=== PATIENT | male | born 1965 | race Hispanic/Latino ===

== ENCOUNTER 2017-09-23 18:00 | Outpatient (CLI) | payer BC | END 2017-09-23 18:01 | disposition home or self-care (01) | LOC: SLEEPLAB 18:00 | PROVIDERS: ATTEND Family Medicine | DX: G47.33 Obstructive sleep apnea (adult) (pediatric) (principal); E66.9 Obesity, unspecified; I10 Essential (primary) hypertension; Z68.37 Body mass index [BMI] 37.0-37.9, adult | CPT/HCPCS: 95806 ==

== ENCOUNTER 2020-11-11 16:22 | Outpatient (CLI) | payer BC | END 2020-11-11 16:23 | disposition home or self-care (01) | LOC: SCSRAD 16:22 | PROVIDERS: ATTEND Family Medicine | DX: R05 Cough (principal) | CPT/HCPCS: 71046 ==

== ENCOUNTER 2021-03-08 17:32 | Emergency (ER) | payer BC ==
[2021-03-09 13:41] LABS: SARS-CoV-2 PCR by NAA DETECTED (NotDetected)
== END 2021-03-08 18:10 | disposition home or self-care (01) ==
LOC: ERS 17:32
DX: U07.1 COVID-19 (principal); I10 Essential (primary) hypertension; E11.9 Type 2 diabetes mellitus without complications; Z79.84 Long term (current) use of oral hypoglycemic drugs
CPT/HCPCS: 99283; U0003; U0005

== ENCOUNTER 2021-03-12 14:50 | Inpatient (IN) | payer BC ==
[2021-03-12] MEDS ORDERED: Dexamethasone 4 mg/ml Vial ONE (15:21)
[2021-03-12 15:22] LABS: #Lymphocytes 1.5 thou/uL (1.20-3.40); #Monocytes 0.5 thou/uL (0.11-0.59); #Neutrophils 8.8 thou/uL (1.40-6.50); %Basophils 0.1 % (0.0-1.0); %Eosinophils 0.1 % (0.0-10.0); %Lymphocytes 13.7 % (21.0-51.0); %Monocytes 4.4 % (0.0-10.0); %Neutrophils 81.7 % (42.0-75.0); Hemoglobin 15.5 g/dL (14.0-18.0); Mean Corpuscular HGB CONC 33.1 g/dL (32.0-36.0); Mean Corpuscular Hemoglobin 29.3 pg (27.0-31.0); Mean Corpuscular Volume 88.5 fL (78.0-98.0); Mean Platelet Volume 6.8 fL (7.4-10.4); Platelet Count 270 thou/uL (130-400); RBC Distribution Width 12.6 % (11.5-14.5); Red Blood Cell (RBC) Count 5.28 mill/uL (4.70-6.10); White Blood Cell (WBC) Count 10.8 thou/uL (4.8-10.8)
[2021-03-12 15:43] LABS: ALT (SGPT) 109 U/L (8-55); AST (SGOT) 79 U/L (5-34); Albumin 3.5 g/dL (3.5-5.0); Alkaline Phosphatase 74 U/L (40-110); Anion Gap 16 mmol/L (10-20); BUN (Urea Nitrogen) 17 mg/dL (8.4-25.7); Bilirubin, Total 0.5 mg/dL (0.2-1.2); Calc. Creatinine Clearance 0 mL/min (70-130); Calcium 7.9 mg/dL (7.8-10.44); Carbon Dioxide 23 mmol/L (22-29); Chloride 95 mmol/L (98-107); Globulin 3.6 g/dL (2.4-3.5); Glucose 108 mg/dL (70-105); Potassium 4.1 mmol/L (3.5-5.1); Protein, Total 7.1 g/dL (6.0-8.3); Sodium 130 mmol/L (136-145)
[2021-03-12] MEDS ORDERED: Dextrose 5% in Water 1,000 ML IV PRN (17:50)
[2021-03-12] MEDS ORDERED: HumaLOG 300 UNITS/3 ML VIAL SC PRN (17:50)
[2021-03-12] MEDS ORDERED: Dextrose 50% Abboject 50 ML SYRINGE SLOW IVP PRN (17:50)
[2021-03-12] MEDS ORDERED: Loperamide HCl 2 MG CAP PO PRN ×2 (17:51)
[2021-03-12] MEDS ORDERED: HYDROcodone/Acetaminophen 10/325 mg Tablet PO PRN (17:51)
[2021-03-12] MEDS ORDERED: HYDROcodone/Acetaminophen 5/325 mg Tablet PO PRN (17:51)
[2021-03-12] MEDS ORDERED: Ondansetron ODT 4 MG TAB PO PRN (17:51)
[2021-03-12] MEDS ORDERED: Acetaminophen 325 MG TAB PO PRN (17:51)
[2021-03-12] MEDS ORDERED: Albuterol 200 PUFF (6.7GM INHALER) INH PRN (20:08)
[2021-03-12] MEDS ORDERED: Pharmacy to Dose REMDESIVIR IVPB PRN (20:10)
[2021-03-13] MEDS: Guaifenesin DM 100-10/5 ML UDCUP PO PRN ×2 (00:25→16:23)
[2021-03-13] MEDS: Sodium Chloride 0.9% 1,000 ML IV SCH ×5 (00:26→21:02)
[2021-03-13] MEDS: Colchicine 0.6 MG TAB PO SCH ×3 (00:29→20:59)
[2021-03-13] MEDS: Enoxaparin Sodium 40 MG/0.4 ML SYRINGE SC SCH ×2 (00:29→08:45)
[2021-03-13] MEDS: Ascorbic Acid 500 mg Chewable Tablet PO SCH (08:45)
[2021-03-13] MEDS: Cholecalciferol 1,000 UNITS (25 MCG) TAB PO SCH (08:46)
[2021-03-13] MEDS: Amlodipine 5 MG TAB PO SCH (08:46)
[2021-03-13] MEDS: Zinc Sulfate 220 MG CAP PO SCH (08:47)
[2021-03-13 08:51] LABS: #Lymphocytes 1.3 thou/uL (1.20-3.40); #Monocytes 0.6 thou/uL (0.11-0.59); #Neutrophils 10.6 thou/uL (1.40-6.50); %Basophils 0.1 % (0.0-1.0); %Eosinophils 0.1 % (0.0-10.0); %Lymphocytes 10.4 % (21.0-51.0); %Monocytes 4.4 % (0.0-10.0); Hemoglobin 13.9 g/dL (14.0-18.0); Mean Corpuscular HGB CONC 31.5 g/dL (32.0-36.0); Mean Corpuscular Hemoglobin 28.1 pg (27.0-31.0); Mean Corpuscular Volume 89.2 fL (78.0-98.0); Mean Platelet Volume 7.9 fL (7.4-10.4); Platelet Count 241 thou/uL (130-400); RBC Distribution Width 12.8 % (11.5-14.5); Red Blood Cell (RBC) Count 4.93 mill/uL (4.70-6.10); White Blood Cell (WBC) Count 12.5 thou/uL (4.8-10.8)
[2021-03-13] MEDS ORDERED: Dexamethasone 10 MG/ML VIAL SLOW IVP SCH ×2 (09:00→21:00)
[2021-03-13] MEDS ORDERED: Allopurinol 300 MG TAB PO SCH ×3 (09:00)
[2021-03-13] MEDS ORDERED: Dexamethasone 10 MG in Sodium Chloride 0.9% 50 ML IVPB SCH (09:00)
[2021-03-13 09:20] LABS: ALT (SGPT) 77 U/L (8-55); AST (SGOT) 68 U/L (5-34); Albumin 3.1 g/dL (3.5-5.0); Alkaline Phosphatase 67 U/L (40-110); Anion Gap 14 mmol/L (10-20); BUN (Urea Nitrogen) 20 mg/dL (8.4-25.7); Bilirubin, Total 0.4 mg/dL (0.2-1.2); Calc. Creatinine Clearance 122 mL/min (70-130); Calcium 8.1 mg/dL (7.8-10.44); Carbon Dioxide 23 mmol/L (22-29); Chloride 99 mmol/L (98-107); Globulin 4.1 g/dL (2.4-3.5); Glucose 111 mg/dL (70-105); Potassium 5.1 mmol/L (3.5-5.1); Protein, Total 7.2 g/dL (6.0-8.3); Sodium 131 mmol/L (136-145)
[2021-03-13 09:49] LABS: Actual Bicarbonate (HCO3a) 23.8 mEq/L (22-28); Base Excess (BEa) 0.6 mEq/L (-2.0 to +3.0); CO2 Tension 33.7 mmHg (35.0-45.0); Calcium, Ionized (arterial) 1.06 mmol/L (1.12-1.30); Carboxyhemoglobin (COHb) 0.7 gm% (0.0-3.0); Hemoglobin (Hb) 14.2 g/dL (14.0-18.0); Potassium - ABG Lab 4.37 mmol/L (3.70-5.30); pH, Arterial 7.47 (7.35-7.45)
[2021-03-13 09:51] LABS: O2 Tension (PaO2), arterial 45.1 mmHg (80.0-100.0)
[2021-03-13 09:52] LABS: ALV-art Gradient 625.775 mmHg (0-20); Puncture Site RRA
[2021-03-13] MEDS: Lorazepam 2 MG/ML VIAL SLOW IVP PRN ×2 (10:44→16:24)
[2021-03-13] MEDS ORDERED: BARICITINIB 2 MG TAB PO SCH (10:45)
[2021-03-13] MEDS ORDERED: Vecuronium Bromide 20 MG VIAL IV PRN (17:57)
[2021-03-13] MEDS ORDERED: Ventilator Sedation Protocol 1 EACH FS ONE (17:58)
[2021-03-13] MEDS ORDERED: Propofol BOLUS 1,000 MG/100 ML VIAL IV PRN (18:15)
[2021-03-13] MEDS ORDERED: Morphine 2 MG/ML VIAL SLOW IVP PRN (18:15)
[2021-03-13] MEDS ORDERED: Fentanyl BOLUS 250 ML IVPB PRN (18:15)
[2021-03-13] MEDS ORDERED: DISCONTINUE PREVIOUS NARCOTIC PAIN MEDICATIONS AND BENZODIAZEPINES FS SCH (18:15)
[2021-03-13] MEDS: Enoxaparin Sodium 60 MG/0.6 ML SYRINGE SC SCH (20:59)
[2021-03-13] MEDS: methylPREDNISolone Sod Succ/PF 125 MG in Sodium Chloride 0.9% 250 ML 250 ML IVPB SCH (21:03)
[2021-03-13 22:43] LABS: Actual Bicarbonate (HCO3a) 25.9 mEq/L (22-28); Base Excess (BEa) 2.3 mEq/L (-2.0 to +3.0); CO2 Tension 37.1 mmHg (35.0-45.0); Calcium, Ionized (arterial) 1.08 mmol/L (1.12-1.30); Carboxyhemoglobin (COHb) 0.5 gm% (0.0-3.0); Hemoglobin (Hb) 13.7 g/dL (14.0-18.0); Potassium - ABG Lab 4.88 mmol/L (3.70-5.30); pH, Arterial 7.46 (7.35-7.45)
[2021-03-13 22:44] LABS: O2 Tension (PaO2), arterial 49.9 mmHg (80.0-100.0)
[2021-03-13 22:45] LABS: ALV-art Gradient 616.725 mmHg (0-20); Puncture Site RRA
[2021-03-14 05:33] LABS: #Lymphocytes 1.1 thou/uL (1.20-3.40); #Monocytes 0.6 thou/uL (0.11-0.59); #Neutrophils 16.5 thou/uL (1.40-6.50); %Basophils 0.1 % (0.0-1.0); %Eosinophils 0.1 % (0.0-10.0); %Lymphocytes 5.9 % (21.0-51.0); %Monocytes 3.5 % (0.0-10.0); %Neutrophils 90.5 % (42.0-75.0); Hemoglobin 13.2 g/dL (14.0-18.0); Mean Corpuscular HGB CONC 34.1 g/dL (32.0-36.0); Mean Corpuscular Hemoglobin 30.5 pg (27.0-31.0); Mean Corpuscular Volume 89.5 fL (78.0-98.0); Mean Platelet Volume 7.1 fL (7.4-10.4); Platelet Count 338 thou/uL (130-400); RBC Distribution Width 12.6 % (11.5-14.5); Red Blood Cell (RBC) Count 4.34 mill/uL (4.70-6.10); White Blood Cell (WBC) Count 18.2 thou/uL (4.8-10.8)
[2021-03-14 05:55] LABS: ALT (SGPT) 66 U/L (8-55); AST (SGOT) 68 U/L (5-34); Albumin 2.8 g/dL (3.5-5.0); Alkaline Phosphatase 71 U/L (40-110); Anion Gap 13 mmol/L (10-20); BUN (Urea Nitrogen) 26 mg/dL (8.4-25.7); Bilirubin, Total 0.4 mg/dL (0.2-1.2); Calc. Creatinine Clearance 127 mL/min (70-130); Calcium 8.2 mg/dL (7.8-10.44); Carbon Dioxide 24 mmol/L (22-29); Chloride 101 mmol/L (98-107); Globulin 3.7 g/dL (2.4-3.5); Glucose 137 mg/dL (70-105); Magnesium 2.3 mg/dL (1.6-2.6); Potassium 4.9 mmol/L (3.5-5.1); Protein, Total 6.5 g/dL (6.0-8.3); Sodium 133 mmol/L (136-145)
[2021-03-14] MEDS: BARICITINIB 2 MG TAB PO SCH (08:48)
[2021-03-14] MEDS: Ascorbic Acid 500 mg Chewable Tablet PO SCH (08:48)
[2021-03-14] MEDS: Zinc Sulfate 220 MG CAP PO SCH (08:49)
[2021-03-14] MEDS: Colchicine 0.6 MG TAB PO SCH ×2 (08:49→21:02)
[2021-03-14] MEDS: Enoxaparin Sodium 60 MG/0.6 ML SYRINGE SC SCH ×2 (08:49→21:01)
[2021-03-14] MEDS: Cholecalciferol 1,000 UNITS (25 MCG) TAB PO SCH (08:52)
[2021-03-14] MEDS ORDERED: Propofol 1,000 MG/100 ML VIAL IV ONE (11:13)
[2021-03-14] MEDS ORDERED: Fentanyl CADD 100 ML ONE ×2 (11:14→21:48)
[2021-03-14] MEDS: Fentanyl CADD 100 ML IV SCH ×2 (11:25→21:51)
[2021-03-14] MEDS ORDERED: Vecuronium 10 MG VIAL ONE ×2 (12:10→18:35)
[2021-03-14 12:44] LABS: Actual Bicarbonate (HCO3a) 24.2 mEq/L (22-28); Base Excess (BEa) -1.4 mEq/L (-2.0 to +3.0); CO2 Tension 44.1 mmHg (35.0-45.0); Calcium, Ionized (arterial) 1.08 mmol/L (1.12-1.30); Carboxyhemoglobin (COHb) 0.1 gm% (0.0-3.0); O2 Tension (PaO2), arterial 86.2 mmHg (80.0-100.0); Potassium - ABG Lab 4.39 mmol/L (3.70-5.30); pH, Arterial 7.36 (7.35-7.45)
[2021-03-14 12:46] LABS: ALV-art Gradient 429.075 mmHg (0-20); Puncture Site LRA
[2021-03-14] MEDS: Amlodipine 5 MG TAB PO SCH (17:34)
[2021-03-14] MEDS: Propofol 1,000 MG/100 ML VIAL IV PRN (17:40)
[2021-03-14] MEDS: HumaLOG 300 UNITS/3 ML VIAL SC PRN (17:41)
[2021-03-14] MEDS ORDERED: Piperacillin/Tazobactam 3.375 GM in Sodium Chloride 0.9% 100 ML IVPB SCH ×2 (18:30→20:15)
[2021-03-14] MEDS: methylPREDNISolone Sod Succ/PF 125 MG in Sodium Chloride 0.9% 250 ML 250 ML IVPB SCH (19:36)
[2021-03-14] MEDS: Lorazepam 2 MG/ML VIAL SLOW IVP PRN ×2 (19:38→21:53)
[2021-03-14 21:21] LABS: Bilirubin Negative (Negative); Blood, Urine 1+ (Negative); Clarity Clear (Clear); Glucose, Urine (Dipstick) Normal (Negative); Ketone, Urine Negative (Negative); Leukocyte Negative Leu/uL (Negative); Nitrite Negative (Negative); Protein, Urine (Dipstick) Negative (Neg-Trace); Specific Gravity, Urine 1.025 (1.002-1.036); Squamous Epithelial 0-3 HPF (0-3); Urobilinogen Normal mg/dL (Less than 2); WBC/HPF 0-3 HPF (0-3); pH, Urine 5.5 (5.0-9.0)
[2021-03-14 21:22] LABS: Bacteria/HPF Rare-Few HPF (None Seen)
[2021-03-14 21:23] LABS: Urine Culture Reflex No No
[2021-03-14] MEDS ORDERED: Sterile Water 10 ML ONE (21:49)
[2021-03-14] MEDS: Vancomycin 1.5 GRAM/300 ML BAG 1.5 GM in Premix Bag 1 BAG IVPB SCH (21:51)
[2021-03-14] MEDS: Propofol 500 MG/50 ML VIAL IV PRN (21:52)
[2021-03-14] MEDS: Vecuronium 10 MG VIAL IV PRN (21:53)
[2021-03-14] MEDS: Piperacillin/Tazobactam 3.375 GM in Sodium Chloride 0.9% 100 ML IVPB SCH (23:42)
[2021-03-15] MEDS: Propofol 500 MG/50 ML VIAL IV PRN ×5 (00:24→09:50)
[2021-03-15] MEDS ORDERED: Sterile Water 10 ML ONE ×3 (02:12→19:24)
[2021-03-15] MEDS: Lorazepam 2 MG/ML VIAL SLOW IVP PRN ×3 (02:15→20:36)
[2021-03-15] MEDS: Vecuronium 10 MG VIAL IV PRN ×4 (02:15→20:45)
[2021-03-15] MEDS: Enoxaparin Sodium 60 MG/0.6 ML SYRINGE SC SCH ×2 (08:06→20:38)
[2021-03-15] MEDS: Colchicine 0.6 MG TAB PO SCH ×2 (08:07→20:38)
[2021-03-15] MEDS: Piperacillin/Tazobactam 3.375 GM in Sodium Chloride 0.9% 100 ML IVPB SCH ×3 (08:07→23:45)
[2021-03-15] MEDS: BARICITINIB 2 MG TAB PO SCH (08:07)
[2021-03-15] MEDS: Cholecalciferol 1,000 UNITS (25 MCG) TAB PO SCH (08:08)
[2021-03-15] MEDS: Ascorbic Acid 500 mg Chewable Tablet PO SCH (08:08)
[2021-03-15] MEDS: Amlodipine 5 MG TAB PO SCH (08:08)
[2021-03-15] MEDS: Zinc Sulfate 220 MG CAP PO SCH (08:08)
[2021-03-15] MEDS ORDERED: Fentanyl CADD 100 ML ONE ×2 (09:47→20:25)
[2021-03-15] MEDS: Vancomycin 1.5 GRAM/300 ML BAG 1.5 GM in Premix Bag 1 BAG IVPB SCH ×2 (09:50→20:38)
[2021-03-15 10:39] LABS: Actual Bicarbonate (HCO3a) 22.6 mEq/L (22-28); Base Excess (BEa) -1.6 mEq/L (-2.0 to +3.0); CO2 Tension 36.4 mmHg (35.0-45.0); Carboxyhemoglobin (COHb) 0.3 gm% (0.0-3.0); O2 Tension (PaO2), arterial 82.2 mmHg (80.0-100.0); Potassium - ABG Lab 4.55 mmol/L (3.70-5.30); pH, Arterial 7.41 (7.35-7.45)
[2021-03-15 10:41] LABS: Puncture Site RRA
[2021-03-15 10:51] LABS: ALT (SGPT) 49 U/L (8-55); AST (SGOT) 28 U/L (5-34); Albumin 2.7 g/dL (3.5-5.0); Alkaline Phosphatase 73 U/L (40-110); Anion Gap 15 mmol/L (10-20); BUN (Urea Nitrogen) 32 mg/dL (8.4-25.7); Bilirubin, Total 0.5 mg/dL (0.2-1.2); Calc. Creatinine Clearance 113 mL/min (70-130); Calcium 8.1 mg/dL (7.8-10.44); Carbon Dioxide 22 mmol/L (22-29); Chloride 104 mmol/L (98-107); Globulin 3.5 g/dL (2.4-3.5); Glucose 135 mg/dL (70-105); Magnesium 2.4 mg/dL (1.6-2.6); Phosphorus 5.5 mg/dL (2.3-4.7); Potassium 4.7 mmol/L (3.5-5.1); Protein, Total 6.2 g/dL (6.0-8.3); Sodium 136 mmol/L (136-145)
[2021-03-15 10:58] LABS: Band 16 % (5-11); Lymphocytes 6 % (21-51); MDiff Complete? YES; Mean Corpuscular HGB CONC 33.7 g/dL (32.0-36.0); Mean Corpuscular Volume 88.9 fL (78.0-98.0); Mean Platelet Volume 7.5 fL (7.4-10.4); Monocytes 2 % (0-10); Neutrophil 76 % (42-75); Platelet Count 341 thou/uL (130-400); RBC Distribution Width 12.6 % (11.5-14.5); Red Blood Cell (RBC) Count 4.32 mill/uL (4.70-6.10); White Blood Cell (WBC) Count 29.6 thou/uL (4.8-10.8)
[2021-03-15] MEDS: Sodium Chloride 0.9% 1,000 ML IV SCH (12:49)
[2021-03-15] MEDS: Propofol 1,000 MG/100 ML VIAL IV PRN ×2 (14:04→23:45)
[2021-03-15] MEDS: methylPREDNISolone Sod Succ/PF 125 MG in Sodium Chloride 0.9% 250 ML 250 ML IVPB SCH ×2 (17:33→20:41)
[2021-03-15] MEDS ORDERED: Propofol 1,000 MG/100 ML VIAL IV ONE (18:58)
[2021-03-15] MEDS: Fentanyl CADD 100 ML IV SCH (20:36)
[2021-03-15] MEDS: HumaLOG 300 UNITS/3 ML VIAL SC PRN (23:48)
[2021-03-16] MEDS: Vecuronium 10 MG VIAL IV PRN ×2 (00:45→11:50)
[2021-03-16] MEDS: Lorazepam 2 MG/ML VIAL SLOW IVP PRN ×4 (00:45→23:06)
[2021-03-16] MEDS ORDERED: Sterile Water 10 ML ONE (02:10)
[2021-03-16] MEDS: Propofol 1,000 MG/100 ML VIAL IV PRN ×3 (05:07→21:21)
[2021-03-16 05:30] LABS: #Lymphocytes 0.7 thou/uL (1.20-3.40); #Monocytes 0.8 thou/uL (0.11-0.59); #Neutrophils 14.9 thou/uL (1.40-6.50); %Lymphocytes 4.5 % (21.0-51.0); %Neutrophils 90.4 % (42.0-75.0); Hemoglobin 12.4 g/dL (14.0-18.0); Mean Corpuscular HGB CONC 33.1 g/dL (32.0-36.0); Mean Corpuscular Hemoglobin 29.4 pg (27.0-31.0); Mean Corpuscular Volume 88.9 fL (78.0-98.0); Mean Platelet Volume 7.9 fL (7.4-10.4); Platelet Count 354 thou/uL (130-400); RBC Distribution Width 12.6 % (11.5-14.5); White Blood Cell (WBC) Count 16.5 thou/uL (4.8-10.8)
[2021-03-16 05:35] LABS: ALT (SGPT) 44 U/L (8-55); AST (SGOT) 24 U/L (5-34); Albumin 2.6 g/dL (3.5-5.0); Alkaline Phosphatase 64 U/L (40-110); Anion Gap 15 mmol/L (10-20); BUN (Urea Nitrogen) 40 mg/dL (8.4-25.7); Bilirubin, Total 0.7 mg/dL (0.2-1.2); Calc. Creatinine Clearance 112 mL/min (70-130); Calcium 7.8 mg/dL (7.8-10.44); Carbon Dioxide 23 mmol/L (22-29); Chloride 105 mmol/L (98-107); Glucose 155 mg/dL (70-105); Magnesium 2.8 mg/dL (1.6-2.6); Phosphorus 4.8 mg/dL (2.3-4.7); Potassium 4.8 mmol/L (3.5-5.1); Protein, Total 5.6 g/dL (6.0-8.3); Sodium 138 mmol/L (136-145)
[2021-03-16] MEDS: HumaLOG 300 UNITS/3 ML VIAL SC PRN (06:20)
[2021-03-16] MEDS ORDERED: Fentanyl CADD 100 ML ONE ×2 (06:28→19:18)
[2021-03-16] MEDS: Fentanyl CADD 100 ML IV SCH (07:24)
[2021-03-16 08:18] LABS: Actual Bicarbonate (HCO3a) 21.6 mEq/L (22-28); Base Excess (BEa) -1.6 mEq/L (-2.0 to +3.0); CO2 Tension 31.9 mmHg (35.0-45.0); Calcium, Ionized (arterial) 1.12 mmol/L (1.12-1.30); Carboxyhemoglobin (COHb) 0.4 gm% (0.0-3.0); Hemoglobin (Hb) 12.7 g/dL (14.0-18.0); O2 Tension (PaO2), arterial 137.1 mmHg (80.0-100.0); Potassium - ABG Lab 4.42 mmol/L (3.70-5.30); pH, Arterial 7.45 (7.35-7.45)
[2021-03-16 08:46] LABS: Vancomycin, Trough 8.9 ug/mL
[2021-03-16 09:10] LABS: ALV-art Gradient 108.225 mmHg (0-20); Puncture Site RRA
[2021-03-16] MEDS: BARICITINIB 2 MG TAB PO SCH (09:41)
[2021-03-16] MEDS: Piperacillin/Tazobactam 3.375 GM in Sodium Chloride 0.9% 100 ML IVPB SCH ×2 (09:41→16:48)
[2021-03-16] MEDS: Cholecalciferol 1,000 UNITS (25 MCG) TAB PO SCH (09:41)
[2021-03-16] MEDS: Colchicine 0.6 MG TAB PO SCH ×2 (09:42→21:20)
[2021-03-16] MEDS: Enoxaparin Sodium 60 MG/0.6 ML SYRINGE SC SCH ×2 (09:42→21:20)
[2021-03-16] MEDS: Ascorbic Acid 500 mg Chewable Tablet PO SCH (09:42)
[2021-03-16] MEDS: Zinc Sulfate 220 MG CAP PO SCH (09:42)
[2021-03-16] MEDS: Amlodipine 5 MG TAB PO SCH (09:51)
[2021-03-16] MEDS: Vancomycin 1.5 GRAM/300 ML BAG 1.5 GM in Premix Bag 1 BAG IVPB SCH ×3 (09:54→17:07)
[2021-03-16] MEDS ORDERED: Vancomycin 1.5 GRAM/300 ML BAG 1.5 GM in Premix Bag 1 BAG IVPB SCH (10:00)
[2021-03-16 15:06] LABS: Actual Bicarbonate (HCO3a) 22.7 mEq/L (22-28); Base Excess (BEa) -0.8 mEq/L (-2.0 to +3.0); CO2 Tension 34.5 mmHg (35.0-45.0); Calcium, Ionized (arterial) 1.13 mmol/L (1.12-1.30); Carboxyhemoglobin (COHb) 0.7 gm% (0.0-3.0); Hemoglobin (Hb) 14.1 g/dL (14.0-18.0); O2 Tension (PaO2), arterial 95.6 mmHg (80.0-100.0); Potassium - ABG Lab 4.42 mmol/L (3.70-5.30); pH, Arterial 7.44 (7.35-7.45)
[2021-03-16 15:08] LABS: ALV-art Gradient 146.475 mmHg (0-20); Puncture Site RRA
[2021-03-16] MEDS: methylPREDNISolone Sod Succ/PF 125 MG in Sodium Chloride 0.9% 250 ML 250 ML IVPB SCH (21:30)
[2021-03-17] MEDS: Piperacillin/Tazobactam 3.375 GM in Sodium Chloride 0.9% 100 ML IVPB SCH ×4 (01:49→23:25)
[2021-03-17] MEDS: Vancomycin 1.5 GRAM/300 ML BAG 1.5 GM in Premix Bag 1 BAG IVPB SCH ×3 (01:50→16:38)
[2021-03-17 04:21] LABS: #Lymphocytes 0.8 thou/uL (1.20-3.40); #Neutrophils 14.6 thou/uL (1.40-6.50); %Lymphocytes 4.8 % (21.0-51.0); %Monocytes 6.3 % (0.0-10.0); %Neutrophils 88.9 % (42.0-75.0); Hemoglobin 12.2 g/dL (14.0-18.0); Mean Corpuscular Hemoglobin 29.6 pg (27.0-31.0); Mean Corpuscular Volume 89.5 fL (78.0-98.0); Mean Platelet Volume 7.5 fL (7.4-10.4); Platelet Count 401 thou/uL (130-400); RBC Distribution Width 12.6 % (11.5-14.5); Red Blood Cell (RBC) Count 4.12 mill/uL (4.70-6.10); White Blood Cell (WBC) Count 16.4 thou/uL (4.8-10.8)
[2021-03-17] MEDS: Propofol 1,000 MG/100 ML VIAL IV PRN ×4 (04:45→21:16)
[2021-03-17 04:49] LABS: ALT (SGPT) 62 U/L (8-55); AST (SGOT) 38 U/L (5-34); Albumin 2.5 g/dL (3.5-5.0); Alkaline Phosphatase 71 U/L (40-110); Anion Gap 13 mmol/L (10-20); BUN (Urea Nitrogen) 38 mg/dL (8.4-25.7); Bilirubin, Total 0.9 mg/dL (0.2-1.2); Calc. Creatinine Clearance 111 mL/min (70-130); Calcium 7.7 mg/dL (7.8-10.44); Carbon Dioxide 23 mmol/L (22-29); Chloride 107 mmol/L (98-107); Glucose 166 mg/dL (70-105); Magnesium 2.6 mg/dL (1.6-2.6); Potassium 4.9 mmol/L (3.5-5.1); Protein, Total 5.5 g/dL (6.0-8.3); Sodium 138 mmol/L (136-145)
[2021-03-17] MEDS ORDERED: Fentanyl CADD 100 ML ONE ×2 (06:47→19:17)
[2021-03-17] MEDS: Fentanyl CADD 100 ML IV SCH ×2 (06:50→19:22)
[2021-03-17 08:15] LABS: Actual Bicarbonate (HCO3a) 22.6 mEq/L (22-28); Base Excess (BEa) -1.5 mEq/L (-2.0 to +3.0); CO2 Tension 36.1 mmHg (35.0-45.0); Calcium, Ionized (arterial) 1.14 mmol/L (1.12-1.30); Carboxyhemoglobin (COHb) 0.3 gm% (0.0-3.0); Hemoglobin (Hb) 12.8 g/dL (14.0-18.0); Potassium - ABG Lab 4.72 mmol/L (3.70-5.30); pH, Arterial 7.41 (7.35-7.45)
[2021-03-17 08:30] LABS: ALV-art Gradient 138.075 mmHg (0-20); Puncture Site RRA
[2021-03-17] MEDS: Enoxaparin Sodium 60 MG/0.6 ML SYRINGE SC SCH ×2 (08:35→21:16)
[2021-03-17] MEDS: BARICITINIB 2 MG TAB PO SCH (08:36)
[2021-03-17] MEDS: Ascorbic Acid 500 mg Chewable Tablet PO SCH (08:36)
[2021-03-17] MEDS: Colchicine 0.6 MG TAB PO SCH ×2 (08:36→21:16)
[2021-03-17] MEDS: Zinc Sulfate 220 MG CAP PO SCH (08:36)
[2021-03-17] MEDS: Amlodipine 5 MG TAB PO SCH (08:36)
[2021-03-17] MEDS: Cholecalciferol 1,000 UNITS (25 MCG) TAB PO SCH (08:37)
[2021-03-17 10:13] LABS: Vancomycin, Trough 24.7 ug/mL
[2021-03-17 17:26] LABS: Vancomycin, Random 22.2 ug/mL (See Comment)
[2021-03-17] MEDS: methylPREDNISolone Sod Succ/PF 125 MG in Sodium Chloride 0.9% 250 ML 250 ML IVPB SCH (21:16)
[2021-03-18] MEDS: Vancomycin HCl 1.25 GM in Sodium Chloride 0.9% 250 ML 250 ML IVPB SCH ×3 (00:24→23:07)
[2021-03-18] MEDS: Propofol 1,000 MG/100 ML VIAL IV PRN ×4 (03:16→18:43)
[2021-03-18 05:00] LABS: Hemoglobin 12.3 g/dL (14.0-18.0); Mean Corpuscular HGB CONC 33.7 g/dL (32.0-36.0); Mean Corpuscular Hemoglobin 30.5 pg (27.0-31.0); Mean Corpuscular Volume 90.4 fL (78.0-98.0); Mean Platelet Volume 7.9 fL (7.4-10.4); Platelet Count 509 thou/uL (130-400); RBC Distribution Width 12.5 % (11.5-14.5); Red Blood Cell (RBC) Count 4.04 mill/uL (4.70-6.10); White Blood Cell (WBC) Count 19.8 thou/uL (4.8-10.8)
[2021-03-18 05:46] LABS: Band 8 % (5-11); Lymphocytes 5 % (21-51); MDiff Complete? YES; Monocytes 5 % (0-10); Neutrophil 82 % (42-75); Platelet Morphology Comment Appears Increased; RBC Morphology Normal
[2021-03-18] MEDS ORDERED: Fentanyl CADD 100 ML ONE ×2 (07:50→20:39)
[2021-03-18] MEDS: Lorazepam 2 MG/ML VIAL SLOW IVP PRN (08:05)
[2021-03-18] MEDS: Enoxaparin Sodium 60 MG/0.6 ML SYRINGE SC SCH ×2 (08:05→20:45)
[2021-03-18] MEDS: Pantoprazole 40 MG GRANULES PACKET PER TUBE SCH (08:06)
[2021-03-18] MEDS: Ascorbic Acid 500 mg Chewable Tablet PO SCH (08:06)
[2021-03-18] MEDS: Piperacillin/Tazobactam 3.375 GM in Sodium Chloride 0.9% 100 ML IVPB SCH ×2 (08:06→16:19)
[2021-03-18] MEDS: Fentanyl CADD 100 ML IV SCH ×2 (08:08→20:46)
[2021-03-18] MEDS: Colchicine 0.6 MG TAB PO SCH ×2 (08:20→20:45)
[2021-03-18] MEDS: Zinc Sulfate 220 MG CAP PO SCH (08:20)
[2021-03-18] MEDS: BARICITINIB 2 MG TAB PO SCH (08:20)
[2021-03-18] MEDS: Amlodipine 5 MG TAB PO SCH (08:21)
[2021-03-18] MEDS: Cholecalciferol 1,000 UNITS (25 MCG) TAB PO SCH (10:48)
[2021-03-18] MEDS ORDERED: VANCOMYCIN 1.25 GM/250 ML BAG 1.25 GM in Premix Bag 1 BAG IVPB SCH (16:30)
[2021-03-19] MEDS: Piperacillin/Tazobactam 3.375 GM in Sodium Chloride 0.9% 100 ML IVPB SCH ×3 (00:01→15:12)
[2021-03-19] MEDS: VANCOMYCIN 1.25 GM/250 ML BAG 1.25 GM in Premix Bag 1 BAG IVPB SCH ×3 (00:02→17:48)
[2021-03-19] MEDS: Propofol 1,000 MG/100 ML VIAL IV PRN ×5 (00:03→22:35)
[2021-03-19] MEDS: methylPREDNISolone Sod Succ/PF 125 MG in Sodium Chloride 0.9% 250 ML 250 ML IVPB SCH ×2 (01:49→22:35)
[2021-03-19 04:59] LABS: Hemoglobin 12.6 g/dL (14.0-18.0); Mean Corpuscular HGB CONC 32.4 g/dL (32.0-36.0); Mean Corpuscular Hemoglobin 28.8 pg (27.0-31.0); Mean Corpuscular Volume 89.1 fL (78.0-98.0); Mean Platelet Volume 7.6 fL (7.4-10.4); Platelet Count 502 thou/uL (130-400); RBC Distribution Width 12.3 % (11.5-14.5); Red Blood Cell (RBC) Count 4.36 mill/uL (4.70-6.10); White Blood Cell (WBC) Count 18.4 thou/uL (4.8-10.8)
[2021-03-19 05:18] LABS: Anion Gap 13 mmol/L (10-20); BUN (Urea Nitrogen) 26 mg/dL (8.4-25.7); Calc. Creatinine Clearance 143 mL/min (70-130); Carbon Dioxide 25 mmol/L (22-29); Chloride 103 mmol/L (98-107); Glucose 138 mg/dL (70-105); Potassium 5.2 mmol/L (3.5-5.1); Sodium 136 mmol/L (136-145)
[2021-03-19 05:44] LABS: Band 4 % (5-11); Lymphocytes 3 % (21-51); MDiff Complete? YES; Monocytes 6 % (0-10); Neutrophil 87 % (42-75); Platelet Morphology Comment Appears Increased
[2021-03-19 07:51] LABS: Actual Bicarbonate (HCO3a) 25.2 mEq/L (22-28); CO2 Tension 38.9 mmHg (35.0-45.0); Calcium, Ionized (arterial) 1.15 mmol/L (1.12-1.30); Carboxyhemoglobin (COHb) 0.9 gm% (0.0-3.0); Hemoglobin (Hb) 13.7 g/dL (14.0-18.0); O2 Tension (PaO2), arterial 56.2 mmHg (80.0-100.0); Puncture Site LRA; pH, Arterial 7.43 (7.35-7.45)
[2021-03-19 07:52] LABS: ALV-art Gradient 287.325 mmHg (0-20)
[2021-03-19 07:55] LABS: Vancomycin, Trough 16.4 ug/mL
[2021-03-19] MEDS ORDERED: Fentanyl CADD 100 ML ONE ×2 (08:49→19:56)
[2021-03-19] MEDS: Fentanyl CADD 100 ML IV SCH ×2 (08:52→20:09)
[2021-03-19] MEDS: Enoxaparin Sodium 60 MG/0.6 ML SYRINGE SC SCH ×2 (08:55→20:08)
[2021-03-19] MEDS: Amlodipine 5 MG TAB PO SCH (08:55)
[2021-03-19] MEDS: Ascorbic Acid 500 mg Chewable Tablet PO SCH (08:55)
[2021-03-19] MEDS: Colchicine 0.6 MG TAB PO SCH ×2 (08:55→20:08)
[2021-03-19] MEDS: Cholecalciferol 1,000 UNITS (25 MCG) TAB PO SCH (08:55)
[2021-03-19] MEDS: BARICITINIB 2 MG TAB PO SCH (08:55)
[2021-03-19] MEDS: Pantoprazole 40 MG GRANULES PACKET PER TUBE SCH (08:56)
[2021-03-19] MEDS: Zinc Sulfate 220 MG CAP PO SCH (08:56)
[2021-03-19] MEDS: Lorazepam 2 MG/ML VIAL SLOW IVP PRN (12:57)
[2021-03-19] MEDS: Senokot 8.6 MG TAB PER TUBE SCH (20:08)
[2021-03-20] MEDS: Piperacillin/Tazobactam 3.375 GM in Sodium Chloride 0.9% 100 ML IVPB SCH ×3 (00:38→15:36)
[2021-03-20] MEDS: VANCOMYCIN 1.25 GM/250 ML BAG 1.25 GM in Premix Bag 1 BAG IVPB SCH ×3 (00:58→15:53)
[2021-03-20] MEDS: Propofol 1,000 MG/100 ML VIAL IV PRN ×5 (03:34→21:52)
[2021-03-20 03:59] LABS: Hemoglobin 13.1 g/dL (14.0-18.0); Mean Corpuscular HGB CONC 33.2 g/dL (32.0-36.0); Mean Corpuscular Hemoglobin 29.6 pg (27.0-31.0); Mean Corpuscular Volume 89.1 fL (78.0-98.0); Mean Platelet Volume 7.8 fL (7.4-10.4); Platelet Count 538 thou/uL (130-400); RBC Distribution Width 12.3 % (11.5-14.5); Red Blood Cell (RBC) Count 4.42 mill/uL (4.70-6.10); White Blood Cell (WBC) Count 19.1 thou/uL (4.8-10.8)
[2021-03-20 04:11] LABS: Anion Gap 14 mmol/L (10-20); BUN (Urea Nitrogen) 28 mg/dL (8.4-25.7); Calc. Creatinine Clearance 0 mL/min (70-130); Calcium 8.2 mg/dL (7.8-10.44); Carbon Dioxide 25 mmol/L (22-29); Chloride 102 mmol/L (98-107); Glucose 132 mg/dL (70-105); Potassium 5.4 mmol/L (3.5-5.1); Sodium 136 mmol/L (136-145)
[2021-03-20 04:22] LABS: Band 13 % (5-11); Lymphocytes 4 % (21-51); MDiff Complete? YES; Monocytes 7 % (0-10); Neutrophil 76 % (42-75); Platelet Morphology Comment Appears Increased; RBC Morphology Normal
[2021-03-20] MEDS: Polyethylene Glycol 3350 17 GM Packet PER TUBE SCH (07:33)
[2021-03-20] MEDS: Ascorbic Acid 500 mg Chewable Tablet PO SCH (07:33)
[2021-03-20] MEDS: Amlodipine 5 MG TAB PO SCH (07:33)
[2021-03-20] MEDS: Senokot 8.6 MG TAB PER TUBE SCH ×2 (07:33→21:27)
[2021-03-20] MEDS: Zinc Sulfate 220 MG CAP PO SCH (07:34)
[2021-03-20] MEDS: Colchicine 0.6 MG TAB PO SCH ×2 (07:34→20:13)
[2021-03-20] MEDS: BARICITINIB 2 MG TAB PO SCH (07:34)
[2021-03-20] MEDS: Enoxaparin Sodium 60 MG/0.6 ML SYRINGE SC SCH ×2 (07:34→20:12)
[2021-03-20] MEDS: Cholecalciferol 1,000 UNITS (25 MCG) TAB PO SCH (07:34)
[2021-03-20] MEDS: Pantoprazole 40 MG GRANULES PACKET PER TUBE SCH (07:34)
[2021-03-20] MEDS ORDERED: Fentanyl CADD 100 ML ONE ×2 (08:02→20:07)
[2021-03-20] MEDS: Fentanyl CADD 100 ML IV SCH ×2 (08:06→20:12)
[2021-03-20] MEDS: Lorazepam 2 MG/ML VIAL SLOW IVP PRN (15:37)
[2021-03-20] MEDS: HumaLOG 300 UNITS/3 ML VIAL SC PRN (21:51)
[2021-03-20 23:27] LABS: Vancomycin, Trough 18.4 ug/mL
[2021-03-21] MEDS: VANCOMYCIN 1.25 GM/250 ML BAG 1.25 GM in Premix Bag 1 BAG IVPB SCH ×3 (00:33→23:21)
[2021-03-21] MEDS: Piperacillin/Tazobactam 3.375 GM in Sodium Chloride 0.9% 100 ML IVPB SCH ×3 (00:34→23:20)
[2021-03-21] MEDS: methylPREDNISolone Sod Succ/PF 125 MG in Sodium Chloride 0.9% 250 ML 250 ML IVPB SCH ×2 (01:55→23:21)
[2021-03-21] MEDS: Propofol 1,000 MG/100 ML VIAL IV PRN ×3 (03:45→21:34)
[2021-03-21 04:40] LABS: Anion Gap 14 mmol/L (10-20); BUN (Urea Nitrogen) 30 mg/dL (8.4-25.7); Calc. Creatinine Clearance 0 mL/min (70-130); Calcium 8.2 mg/dL (7.8-10.44); Carbon Dioxide 25 mmol/L (22-29); Chloride 101 mmol/L (98-107); Glucose 135 mg/dL (70-105); Potassium 5.2 mmol/L (3.5-5.1); Sodium 135 mmol/L (136-145)
[2021-03-21 04:50] LABS: Hemoglobin 13.4 g/dL (14.0-18.0); Mean Corpuscular HGB CONC 33.4 g/dL (32.0-36.0); Mean Corpuscular Volume 89.9 fL (78.0-98.0); Mean Platelet Volume 7.9 fL (7.4-10.4); Platelet Count 604 thou/uL (130-400); RBC Distribution Width 12.4 % (11.5-14.5); Red Blood Cell (RBC) Count 4.47 mill/uL (4.70-6.10); White Blood Cell (WBC) Count 19.1 thou/uL (4.8-10.8)
[2021-03-21 06:07] LABS: Lymphocytes 9 % (21-51); MDiff Complete? YES; Monocytes 11 % (0-10); Neutrophil 79 % (42-75); Platelet Morphology Comment Appears Increased; RBC Morphology Normal; Reactive Lymphocytes 1 % (0-10)
[2021-03-21] MEDS ORDERED: Fentanyl CADD 100 ML ONE ×2 (07:13→20:16)
[2021-03-21 07:30] LABS: Base Excess (BEa) 2.1 mEq/L (-2.0 to +3.0); CO2 Tension 38.3 mmHg (35.0-45.0); Calcium, Ionized (arterial) 1.14 mmol/L (1.12-1.30); Carboxyhemoglobin (COHb) 1.1 gm% (0.0-3.0); Hemoglobin (Hb) 15.5 g/dL (14.0-18.0); Potassium - ABG Lab 4.86 mmol/L (3.70-5.30); pH, Arterial 7.45 (7.35-7.45)
[2021-03-21] MEDS: Fentanyl CADD 100 ML IV SCH ×2 (07:34→20:21)
[2021-03-21] MEDS: Lorazepam 2 MG/ML VIAL SLOW IVP PRN ×3 (07:36→21:34)
[2021-03-21 07:49] LABS: O2 Tension (PaO2), arterial 58.4 mmHg (80.0-100.0); Puncture Site RRA
[2021-03-21 07:50] LABS: ALV-art Gradient 178.925 mmHg (0-20)
[2021-03-21] MEDS: BARICITINIB 2 MG TAB PO SCH (08:15)
[2021-03-21] MEDS: Cholecalciferol 1,000 UNITS (25 MCG) TAB PO SCH (08:15)
[2021-03-21] MEDS: Ascorbic Acid 500 mg Chewable Tablet PO SCH (08:15)
[2021-03-21] MEDS: Pantoprazole 40 MG GRANULES PACKET PER TUBE SCH (08:15)
[2021-03-21] MEDS: Colchicine 0.6 MG TAB PO SCH ×2 (08:15→20:20)
[2021-03-21] MEDS: Enoxaparin Sodium 60 MG/0.6 ML SYRINGE SC SCH ×2 (08:15→20:20)
[2021-03-21] MEDS: Zinc Sulfate 220 MG CAP PO SCH (08:15)
[2021-03-21] MEDS: Amlodipine 5 MG TAB PO SCH (08:15)
[2021-03-21] MEDS: Polyethylene Glycol 3350 17 GM Packet PER TUBE SCH (08:16)
[2021-03-21] MEDS: Senokot 8.6 MG TAB PER TUBE SCH ×2 (08:16→20:20)
[2021-03-22] MEDS: Piperacillin/Tazobactam 3.375 GM in Sodium Chloride 0.9% 100 ML IVPB SCH ×3 (07:21→16:00)
[2021-03-22] MEDS: VANCOMYCIN 1.25 GM/250 ML BAG 1.25 GM in Premix Bag 1 BAG IVPB SCH ×2 (07:22)
[2021-03-22 07:51] LABS: Actual Bicarbonate (HCO3a) 25.7 mEq/L (22-28); CO2 Tension 36.9 mmHg (35.0-45.0); Calcium, Ionized (arterial) 1.16 mmol/L (1.12-1.30); Carboxyhemoglobin (COHb) 1.2 gm% (0.0-3.0); Hemoglobin (Hb) 13.7 g/dL (14.0-18.0); O2 Tension (PaO2), arterial 63.2 mmHg (80.0-100.0); Potassium - ABG Lab 4.47 mmol/L (3.70-5.30); pH, Arterial 7.46 (7.35-7.45)
[2021-03-22] MEDS: Pantoprazole 40 MG GRANULES PACKET PER TUBE SCH (08:02)
[2021-03-22] MEDS: Cholecalciferol 1,000 UNITS (25 MCG) TAB PO SCH (08:02)
[2021-03-22] MEDS: BARICITINIB 2 MG TAB PO SCH (08:02)
[2021-03-22] MEDS: Enoxaparin Sodium 60 MG/0.6 ML SYRINGE SC SCH ×2 (08:02→21:34)
[2021-03-22 08:03] LABS: Puncture Site RRA
[2021-03-22] MEDS: Amlodipine 5 MG TAB PO SCH (08:03)
[2021-03-22] MEDS: Zinc Sulfate 220 MG CAP PO SCH (08:03)
[2021-03-22] MEDS: Colchicine 0.6 MG TAB PO SCH ×2 (08:03→21:34)
[2021-03-22] MEDS: Ascorbic Acid 500 mg Chewable Tablet PO SCH (08:03)
[2021-03-22] MEDS: Polyethylene Glycol 3350 17 GM Packet PER TUBE SCH (08:03)
[2021-03-22] MEDS: Senokot 8.6 MG TAB PER TUBE SCH ×2 (08:03→21:34)
[2021-03-22 08:04] LABS: ALV-art Gradient 175.875 mmHg (0-20)
[2021-03-22] MEDS: Lorazepam 2 MG/ML VIAL SLOW IVP PRN (11:15)
[2021-03-22 11:54] LABS: Anion Gap 13 mmol/L (10-20); BUN (Urea Nitrogen) 32 mg/dL (8.4-25.7); Calc. Creatinine Clearance 0 mL/min (70-130); Calcium 8.2 mg/dL (7.8-10.44); Carbon Dioxide 25 mmol/L (22-29); Chloride 102 mmol/L (98-107); Glucose 136 mg/dL (70-105); Potassium 5.2 mmol/L (3.5-5.1); Sodium 135 mmol/L (136-145)
[2021-03-22] MEDS ORDERED: Fentanyl CADD 100 ML ONE (12:01)
[2021-03-22] MEDS: Fentanyl CADD 100 ML IV SCH (12:05)
[2021-03-22] MEDS: Propofol 1,000 MG/100 ML VIAL IV PRN ×2 (12:06→22:59)
[2021-03-22 12:51] LABS: %Basophils 0.6 % (0.0-1.0); %Eosinophils 0.2 % (0.0-10.0); %Lymphocytes 3.4 % (21.0-51.0); %Monocytes 6.1 % (0.0-10.0); %Neutrophils 89.9 % (42.0-75.0); Hemoglobin 12.8 g/dL (14.0-18.0); Mean Corpuscular HGB CONC 33.7 g/dL (32.0-36.0); Mean Corpuscular Hemoglobin 30.3 pg (27.0-31.0); Mean Corpuscular Volume 89.9 fL (78.0-98.0); Platelet Count 627 thou/uL (130-400); RBC Distribution Width 12.4 % (11.5-14.5); Red Blood Cell (RBC) Count 4.22 mill/uL (4.70-6.10); White Blood Cell (WBC) Count 17.5 thou/uL (4.8-10.8)
[2021-03-22 12:52] LABS: #Basophils 0.1 thou/uL (0.0-0.2); #Lymphocytes 0.6 thou/uL (1.20-3.40); #Monocytes 1.1 thou/uL (0.11-0.59); #Neutrophils 15.8 thou/uL (1.40-6.50)
[2021-03-22 14:50] LABS: CRP (Inflammatory) 6.21 mg/dL (= or < 0.5)
[2021-03-22] MEDS: Vancomycin HCl 1.25 GM in Sodium Chloride 0.9% 250 ML 250 ML IVPB SCH (16:01)
[2021-03-22] MEDS: methylPREDNISolone Sod Succ/PF 125 MG in Sodium Chloride 0.9% 250 ML 250 ML IVPB SCH (19:05)
[2021-03-23] MEDS: Piperacillin/Tazobactam 3.375 GM in Sodium Chloride 0.9% 100 ML IVPB SCH ×3 (00:06→14:50)
[2021-03-23] MEDS: methylPREDNISolone Sod Succ/PF 125 MG in Sodium Chloride 0.9% 250 ML 250 ML IVPB SCH ×2 (00:06→11:03)
[2021-03-23 00:13] LABS: Vancomycin, Trough 17.1 ug/mL
[2021-03-23] MEDS: Vancomycin HCl 1.25 GM in Sodium Chloride 0.9% 250 ML 250 ML IVPB SCH ×3 (01:03→15:50)
[2021-03-23] MEDS ORDERED: Fentanyl CADD 100 ML ONE ×2 (04:05→15:59)
[2021-03-23] MEDS: Fentanyl CADD 100 ML IV SCH ×2 (04:07→16:02)
[2021-03-23 04:44] LABS: Anion Gap 13 mmol/L (10-20); BUN (Urea Nitrogen) 37 mg/dL (8.4-25.7); Calc. Creatinine Clearance 0 mL/min (70-130); Calcium 8.5 mg/dL (7.8-10.44); Carbon Dioxide 26 mmol/L (22-29); Chloride 103 mmol/L (98-107); Glucose 148 mg/dL (70-105); Potassium 5.2 mmol/L (3.5-5.1); Sodium 137 mmol/L (136-145)
[2021-03-23 05:37] LABS: Band 4 % (5-11); Hemoglobin 12.6 g/dL (14.0-18.0); Hypochromia SLIGHT = 6-15 cells (100X) (0-5/hpf); Lymphocytes 4 % (21-51); MDiff Complete? YES; Mean Corpuscular HGB CONC 31.8 g/dL (32.0-36.0); Mean Corpuscular Hemoglobin 28.6 pg (27.0-31.0); Mean Corpuscular Volume 89.8 fL (78.0-98.0); Mean Platelet Volume 7.9 fL (7.4-10.4); Monocytes 2 % (0-10); Myelocyte 2 % (0-0); Neutrophil 87 % (42-75); Platelet Count 657 thou/uL (130-400); Platelet Morphology Comment Appears Increased; RBC Distribution Width 12.4 % (11.5-14.5); Reactive Lymphocytes 1 % (0-10); Red Blood Cell (RBC) Count 4.39 mill/uL (4.70-6.10); White Blood Cell (WBC) Count 20.9 thou/uL (4.8-10.8)
[2021-03-23] MEDS: Enoxaparin Sodium 60 MG/0.6 ML SYRINGE SC SCH ×2 (07:28→19:50)
[2021-03-23] MEDS: BARICITINIB 2 MG TAB PO SCH (07:29)
[2021-03-23] MEDS: Colchicine 0.6 MG TAB PO SCH ×3 (07:29→20:35)
[2021-03-23] MEDS: Zinc Sulfate 220 MG CAP PO SCH (07:29)
[2021-03-23] MEDS: Amlodipine 5 MG TAB PO SCH (07:29)
[2021-03-23] MEDS: Cholecalciferol 1,000 UNITS (25 MCG) TAB PO SCH (07:30)
[2021-03-23] MEDS: Pantoprazole 40 MG GRANULES PACKET PER TUBE SCH (07:30)
[2021-03-23] MEDS: Ascorbic Acid 500 mg Chewable Tablet PO SCH (07:30)
[2021-03-23] MEDS: Senokot 8.6 MG TAB PER TUBE SCH ×2 (07:31→20:34)
[2021-03-23] MEDS: Polyethylene Glycol 3350 17 GM Packet PER TUBE SCH (07:31)
[2021-03-23 07:46] LABS: Actual Bicarbonate (HCO3a) 25.4 mEq/L (22-28); Base Excess (BEa) 0.9 mEq/L (-2.0 to +3.0); CO2 Tension 40.2 mmHg (35.0-45.0); Calcium, Ionized (arterial) 1.16 mmol/L (1.12-1.30); Carboxyhemoglobin (COHb) 0.9 gm% (0.0-3.0); Hemoglobin (Hb) 13.6 g/dL (14.0-18.0); O2 Tension (PaO2), arterial 68.2 mmHg (80.0-100.0); Potassium - ABG Lab 4.51 mmol/L (3.70-5.30); pH, Arterial 7.42 (7.35-7.45)
[2021-03-23 08:13] LABS: Puncture Site RRA
[2021-03-24] MEDS: Piperacillin/Tazobactam 3.375 GM in Sodium Chloride 0.9% 100 ML IVPB SCH ×2 (00:04→09:06)
[2021-03-24] MEDS: Vancomycin HCl 1.25 GM in Sodium Chloride 0.9% 250 ML 250 ML IVPB SCH ×2 (00:04→09:06)
[2021-03-24] MEDS: methylPREDNISolone Sod Succ/PF 125 MG in Sodium Chloride 0.9% 250 ML 250 ML IVPB SCH ×2 (03:53→22:28)
[2021-03-24 04:47] LABS: Band 5 % (5-11); Hemoglobin 13.6 g/dL (14.0-18.0); Hypochromia SLIGHT = 6-15 cells (100X) (0-5/hpf); Lymphocytes 3 % (21-51); MDiff Complete? YES; Mean Corpuscular HGB CONC 32.6 g/dL (32.0-36.0); Mean Corpuscular Hemoglobin 28.9 pg (27.0-31.0); Mean Corpuscular Volume 88.5 fL (78.0-98.0); Mean Platelet Volume 7.9 fL (7.4-10.4); Monocytes 11 % (0-10); Neutrophil 81 % (42-75); Platelet Count 584 thou/uL (130-400); Platelet Morphology Comment Appears Increased; RBC Distribution Width 12.4 % (11.5-14.5); Red Blood Cell (RBC) Count 4.71 mill/uL (4.70-6.10); White Blood Cell (WBC) Count 29.1 thou/uL (4.8-10.8)
[2021-03-24 05:09] LABS: Anion Gap 14 mmol/L (10-20); BUN (Urea Nitrogen) 30 mg/dL (8.4-25.7); Calc. Creatinine Clearance 144 mL/min (70-130); Calcium 8.2 mg/dL (7.8-10.44); Carbon Dioxide 24 mmol/L (22-29); Chloride 103 mmol/L (98-107); Glucose 118 mg/dL (70-105); Potassium 5.1 mmol/L (3.5-5.1); Sodium 136 mmol/L (136-145)
[2021-03-24] MEDS: Enoxaparin Sodium 60 MG/0.6 ML SYRINGE SC SCH ×2 (09:30→21:20)
[2021-03-24] MEDS: Polyethylene Glycol 3350 17 GM Packet PER TUBE SCH (11:15)
[2021-03-24] MEDS: Colchicine 0.6 MG TAB PO SCH ×2 (11:15→21:20)
[2021-03-24] MEDS: BARICITINIB 2 MG TAB PO SCH (11:53)
[2021-03-24] MEDS: Ascorbic Acid 500 mg Chewable Tablet PO SCH (11:53)
[2021-03-24] MEDS: Pantoprazole 40 MG GRANULES PACKET PER TUBE SCH (11:53)
[2021-03-24] MEDS: Amlodipine 5 MG TAB PO SCH (11:55)
[2021-03-24] MEDS: Cholecalciferol 1,000 UNITS (25 MCG) TAB PO SCH (11:55)
[2021-03-24] MEDS: Zinc Sulfate 220 MG CAP PO SCH (11:55)
[2021-03-24] MEDS: Senokot 8.6 MG TAB PER TUBE SCH ×2 (11:57→21:20)
[2021-03-25 07:02] LABS: Hemoglobin 13.6 g/dL (14.0-18.0); Mean Corpuscular HGB CONC 32.2 g/dL (32.0-36.0); Mean Corpuscular Hemoglobin 28.5 pg (27.0-31.0); Mean Corpuscular Volume 88.6 fL (78.0-98.0); Mean Platelet Volume 7.6 fL (7.4-10.4); Platelet Count 576 thou/uL (130-400); RBC Distribution Width 12.4 % (11.5-14.5); Red Blood Cell (RBC) Count 4.77 mill/uL (4.70-6.10); White Blood Cell (WBC) Count 28.1 thou/uL (4.8-10.8)
[2021-03-25 07:19] LABS: Lymphocytes 3 % (21-51); MDiff Complete? YES; Monocytes 6 % (0-10); Neutrophil 91 % (42-75); Platelet Morphology Comment Appears Increased
[2021-03-25 07:20] LABS: Anion Gap 14 mmol/L (10-20); BUN (Urea Nitrogen) 34 mg/dL (8.4-25.7); Calc. Creatinine Clearance 0 mL/min (70-130); Calcium 8.5 mg/dL (7.8-10.44); Carbon Dioxide 26 mmol/L (22-29); Chloride 102 mmol/L (98-107); Glucose 120 mg/dL (70-105); Potassium 4.7 mmol/L (3.5-5.1); Sodium 137 mmol/L (136-145)
[2021-03-25] MEDS: Enoxaparin Sodium 60 MG/0.6 ML SYRINGE SC SCH ×2 (09:24→20:36)
[2021-03-25] MEDS: BARICITINIB 2 MG TAB PO SCH (09:25)
[2021-03-25] MEDS: Pantoprazole 40 MG GRANULES PACKET PER TUBE SCH (09:25)
[2021-03-25] MEDS: Amlodipine 5 MG TAB PO SCH (09:26)
[2021-03-25] MEDS: Ascorbic Acid 500 mg Chewable Tablet PO SCH (09:27)
[2021-03-25] MEDS: Zinc Sulfate 220 MG CAP PO SCH (09:27)
[2021-03-25] MEDS: Cholecalciferol 1,000 UNITS (25 MCG) TAB PO SCH (09:27)
[2021-03-25] MEDS: Senokot 8.6 MG TAB PER TUBE SCH ×2 (09:30→20:37)
[2021-03-25] MEDS: Polyethylene Glycol 3350 17 GM Packet PER TUBE SCH (09:30)
[2021-03-25] MEDS: Colchicine 0.6 MG TAB PO SCH ×2 (09:30→20:37)
[2021-03-25] MEDS: ALPRAZolam 0.25 MG TAB PO PRN (17:41)
[2021-03-26 04:34] LABS: Anion Gap 13 mmol/L (10-20); BUN (Urea Nitrogen) 34 mg/dL (8.4-25.7); Calc. Creatinine Clearance 0 mL/min (70-130); Calcium 8.6 mg/dL (7.8-10.44); Carbon Dioxide 26 mmol/L (22-29); Chloride 103 mmol/L (98-107); Glucose 120 mg/dL (70-105); Potassium 4.6 mmol/L (3.5-5.1); Sodium 137 mmol/L (136-145)
[2021-03-26 04:35] LABS: Hemoglobin 13.4 g/dL (14.0-18.0); Mean Corpuscular HGB CONC 32.2 g/dL (32.0-36.0); Mean Corpuscular Hemoglobin 28.8 pg (27.0-31.0); Mean Corpuscular Volume 89.7 fL (78.0-98.0); Mean Platelet Volume 7.8 fL (7.4-10.4); Platelet Count 557 thou/uL (130-400); RBC Distribution Width 12.5 % (11.5-14.5); Red Blood Cell (RBC) Count 4.63 mill/uL (4.70-6.10); White Blood Cell (WBC) Count 23.9 thou/uL (4.8-10.8)
[2021-03-26 04:36] LABS: Band 1 % (5-11); Hypochromia SLIGHT = 6-15 cells (100X) (0-5/hpf); Lymphocytes 4 % (21-51); MDiff Complete? YES; Monocytes 17 % (0-10); Neutrophil 78 % (42-75); Platelet Morphology Comment Appears Increased
[2021-03-26] MEDS ORDERED: Artificial Tear Sol 15 ML BOT EA EYE PRN (08:12)
[2021-03-26] MEDS ORDERED: Sodium Chloride 0.65% Nasal 44 ML BOT EA NARE PRN (08:12)
[2021-03-26] MEDS ORDERED: Hydrocerin (Eucerin) Cream 120 gm Jar TOP PRN (08:12)
[2021-03-26] MEDS ORDERED: Loratadine 10 MG TAB PO PRN (08:12)
[2021-03-26] MEDS ORDERED: HYDROcodone/Acetaminophen 5/325 mg Tablet PO PRN (08:12)
[2021-03-26] MEDS ORDERED: Senokot S 8.6-50 MG TAB PO PRN (08:12)
[2021-03-26] MEDS ORDERED: Ondansetron PF 4 MG/2 ML Vial IVP PRN (08:12)
[2021-03-26] MEDS ORDERED: Bisacodyl 5 MG TAB PO PRN (08:12)
[2021-03-26] MEDS ORDERED: hydrALAZINE 20 MG/ML VIAL SLOW IVP PRN (08:12)
[2021-03-26] MEDS ORDERED: GUAIFENESIN SF SOLN 200 MG/10 ML UDCUP PO PRN (08:12)
[2021-03-26] MEDS ORDERED: Cepastat Lozenges 1 LOZ PO PRN (08:12)
[2021-03-26] MEDS ORDERED: Benzonatate 100 MG CAP PO PRN (08:12)
[2021-03-26] MEDS: methylPREDNISolone Sod Succ/PF 125 MG in Sodium Chloride 0.9% 250 ML 250 ML IVPB SCH (09:21)
[2021-03-26] MEDS: Amlodipine 5 MG TAB PO SCH (09:22)
[2021-03-26] MEDS: Pantoprazole 40 MG GRANULES PACKET PER TUBE SCH (09:22)
[2021-03-26] MEDS: Cholecalciferol 1,000 UNITS (25 MCG) TAB PO SCH (09:22)
[2021-03-26] MEDS: BARICITINIB 2 MG TAB PO SCH (09:22)
[2021-03-26] MEDS: Ascorbic Acid 500 mg Chewable Tablet PO SCH (09:22)
[2021-03-26] MEDS: Zinc Sulfate 220 MG CAP PO SCH (09:22)
[2021-03-26] MEDS: Colchicine 0.6 MG TAB PO SCH (09:23)
[2021-03-26] MEDS: Senokot 8.6 MG TAB PER TUBE SCH ×2 (09:23→20:43)
[2021-03-26] MEDS: Enoxaparin Sodium 60 MG/0.6 ML SYRINGE SC SCH ×2 (09:23→20:43)
[2021-03-26] MEDS: Polyethylene Glycol 3350 17 GM Packet PER TUBE SCH (09:23)
[2021-03-26 10:29] VITALS: BMI 30.1
[2021-03-27 05:38] LABS: CRP (Inflammatory) 2.88 mg/dL (= or < 0.5); Magnesium 2.1 mg/dL (1.6-2.6); Phosphorus 3.2 mg/dL (2.3-4.7)
[2021-03-27] MEDS: Amlodipine 5 MG TAB PO SCH (09:57)
[2021-03-27] MEDS: predniSONE 20 MG TAB PO SCH (09:57)
[2021-03-27] MEDS: Cholecalciferol 1,000 UNITS (25 MCG) TAB PO SCH (09:58)
[2021-03-27] MEDS: Pantoprazole 40 MG GRANULES PACKET PER TUBE SCH (09:58)
[2021-03-27] MEDS: Enoxaparin Sodium 60 MG/0.6 ML SYRINGE SC SCH (09:58)
[2021-03-27] MEDS: Senokot 8.6 MG TAB PER TUBE SCH (09:59)
[2021-03-27] MEDS: Zinc Sulfate 220 MG CAP PO SCH (10:00)
[2021-03-27] MEDS: Polyethylene Glycol 3350 17 GM Packet PER TUBE SCH (10:02)
[2021-03-27] MEDS: Ascorbic Acid 500 mg Chewable Tablet PO SCH (10:02)
[2021-03-27] MEDS ORDERED: Senokot 8.6 MG TAB PO SCH ×2 (10:22→11:00)
[2021-03-27] MEDS ORDERED: Polyethylene Glycol 3350 17 GM Packet PO SCH ×2 (10:22→11:00)
[2021-03-27] MEDS ORDERED: Pantoprazole 40 MG GRANULES PACKET PO SCH ×2 (10:37→11:00)
[2021-03-27] MEDS: Senokot 8.6 MG TAB PO SCH (20:57)
[2021-03-27] MEDS: Apixaban 5 MG TAB PO SCH (20:57)
[2021-03-28] MEDS: Polyethylene Glycol 3350 17 GM Packet PO SCH (10:10)
[2021-03-28] MEDS: Pantoprazole 40 MG GRANULES PACKET PO SCH (10:10)
[2021-03-28] MEDS: Apixaban 5 MG TAB PO SCH ×2 (10:10→21:39)
[2021-03-28] MEDS: Zinc Sulfate 220 MG CAP PO SCH (10:10)
[2021-03-28] MEDS: Cholecalciferol 1,000 UNITS (25 MCG) TAB PO SCH (10:10)
[2021-03-28] MEDS: Ascorbic Acid 500 mg Chewable Tablet PO SCH (10:10)
[2021-03-28] MEDS: Amlodipine 5 MG TAB PO SCH (10:10)
[2021-03-28] MEDS: predniSONE 20 MG TAB PO SCH (10:10)
[2021-03-28] MEDS: Senokot 8.6 MG TAB PO SCH ×2 (10:10→21:49)
[2021-03-28] MEDS: ALPRAZolam 0.25 MG TAB PO PRN (13:21)
[2021-03-28] MEDS: Metoprolol Tartrate 5 MG/5 ML VIAL IVP PRN (13:22)
[2021-03-29] MEDS: Metoprolol Tartrate 5 MG/5 ML VIAL IVP PRN (05:39)
[2021-03-29] MEDS: Ascorbic Acid 500 mg Chewable Tablet PO SCH (08:11)
[2021-03-29] MEDS: Cholecalciferol 1,000 UNITS (25 MCG) TAB PO SCH (08:11)
[2021-03-29] MEDS: Zinc Sulfate 220 MG CAP PO SCH (08:11)
[2021-03-29] MEDS: Pantoprazole 40 MG GRANULES PACKET PO SCH (08:12)
[2021-03-29] MEDS: predniSONE 20 MG TAB PO SCH (08:12)
[2021-03-29] MEDS: Amlodipine 5 MG TAB PO SCH (08:12)
[2021-03-29] MEDS: Apixaban 5 MG TAB PO SCH ×2 (08:12→19:10)
[2021-03-29] MEDS: Senokot 8.6 MG TAB PO SCH (08:13)
[2021-03-29] MEDS: Polyethylene Glycol 3350 17 GM Packet PO SCH (08:13)
[2021-03-29] MEDS: Metoprolol Tartrate 25 MG TAB PO SCH ×2 (08:15→19:09)
[2021-03-29] MEDS: Tamsulosin HCl 0.4 MG CAP PO SCH (08:15)
[2021-03-29 09:42] LABS: Bilirubin Negative (Negative); Blood, Urine 3+ (Negative); Clarity Extra Turbid (Clear); Glucose, Urine (Dipstick) Normal (Negative); Ketone, Urine 10 mg/dL (Negative); Leukocyte 500 Leu/uL (Negative); Nitrite Negative (Negative); Protein, Urine (Dipstick) 100 mg/dL (Neg-Trace); RBC/HPF Greater than 50 HPF (0-3); Specific Gravity, Urine 1.032 (1.002-1.036); Squamous Epithelial None Seen HPF (0-3); Urobilinogen Normal mg/dL (Less than 2); WBC/HPF Greater than 50 HPF (0-3); pH, Urine 5.5 (5.0-9.0)
[2021-03-29 10:13] LABS: Bacteria/HPF 1+ HPF (None Seen)
[2021-03-29 10:15] LABS: Urine Culture Reflex Yes Yes
[2021-03-29] MEDS: Cefepime 1 GM in Sodium Chloride 0.9% 100 ML IVPB SCH (11:00)
[2021-03-29] MEDS ORDERED: Cefdinir 300 MG CAP PO SCH (21:00)
[2021-03-30] MEDS: Senokot 8.6 MG TAB PO SCH ×4 (00:13→21:56)
[2021-03-30] MEDS: Cefepime 1 GM in Sodium Chloride 0.9% 100 ML IVPB SCH ×3 (00:48→21:19)
[2021-03-30 05:44] LABS: ALT (SGPT) 279 U/L (8-55); AST (SGOT) 32 U/L (5-34); Albumin 3.1 g/dL (3.5-5.0); Alkaline Phosphatase 83 U/L (40-110); Anion Gap 15 mmol/L (10-20); BUN (Urea Nitrogen) 31 mg/dL (8.4-25.7); Bilirubin, Total 0.8 mg/dL (0.2-1.2); CRP (Inflammatory) 23.77 mg/dL (= or < 0.5); Calc. Creatinine Clearance 140 mL/min (70-130); Calcium 8.6 mg/dL (7.8-10.44); Carbon Dioxide 24 mmol/L (22-29); Chloride 99 mmol/L (98-107); Globulin 3.7 g/dL (2.4-3.5); Glucose 114 mg/dL (70-105); Potassium 4.7 mmol/L (3.5-5.1); Protein, Total 6.8 g/dL (6.0-8.3); Sodium 133 mmol/L (136-145)
[2021-03-30 08:19] LABS: Band 2 % (5-11); Hemoglobin 14.3 g/dL (14.0-18.0); Lymphocytes 11 % (21-51); MDiff Complete? YES; Mean Corpuscular HGB CONC 29.8 g/dL (32.0-36.0); Mean Corpuscular Hemoglobin 27.2 pg (27.0-31.0); Mean Corpuscular Volume 91.3 fL (78.0-98.0); Mean Platelet Volume 8.3 fL (7.4-10.4); Monocytes 2 % (0-10); Neutrophil 85 % (42-75); Platelet Count 263 thou/uL (130-400); RBC Distribution Width 13.3 % (11.5-14.5); Red Blood Cell (RBC) Count 5.27 mill/uL (4.70-6.10); White Blood Cell (WBC) Count 38.7 thou/uL (4.8-10.8)
[2021-03-30] MEDS: Cholecalciferol 1,000 UNITS (25 MCG) TAB PO SCH (08:45)
[2021-03-30] MEDS: Ascorbic Acid 500 mg Chewable Tablet PO SCH (08:46)
[2021-03-30] MEDS: Amlodipine 5 MG TAB PO SCH (08:46)
[2021-03-30] MEDS: Polyethylene Glycol 3350 17 GM Packet PO SCH (08:46)
[2021-03-30] MEDS: predniSONE 20 MG TAB PO SCH (08:46)
[2021-03-30] MEDS: Zinc Sulfate 220 MG CAP PO SCH (08:47)
[2021-03-30] MEDS: Apixaban 5 MG TAB PO SCH ×2 (08:47→21:19)
[2021-03-30] MEDS: Pantoprazole 40 MG GRANULES PACKET PO SCH (08:47)
[2021-03-30] MEDS: Metoprolol Tartrate 25 MG TAB PO SCH ×3 (08:47→21:58)
[2021-03-30] MEDS: Tamsulosin HCl 0.4 MG CAP PO SCH (08:47)
[2021-03-31] MEDS: Tamsulosin HCl 0.4 MG CAP PO SCH (08:30)
[2021-03-31] MEDS: Amlodipine 5 MG TAB PO SCH (08:30)
[2021-03-31] MEDS: Cholecalciferol 1,000 UNITS (25 MCG) TAB PO SCH (08:30)
[2021-03-31] MEDS: Zinc Sulfate 220 MG CAP PO SCH (08:30)
[2021-03-31] MEDS: Ascorbic Acid 500 mg Chewable Tablet PO SCH (08:30)
[2021-03-31] MEDS: Pantoprazole 40 MG GRANULES PACKET PO SCH (08:30)
[2021-03-31] MEDS: Metoprolol Tartrate 25 MG TAB PO SCH ×2 (08:30→20:35)
[2021-03-31] MEDS: Apixaban 5 MG TAB PO SCH ×2 (08:30→20:35)
[2021-03-31] MEDS: predniSONE 20 MG TAB PO SCH (08:30)
[2021-03-31] MEDS: Senokot 8.6 MG TAB PO SCH ×2 (10:44→20:35)
[2021-03-31] MEDS: Polyethylene Glycol 3350 17 GM Packet PO SCH (10:44)
[2021-03-31] MEDS: Cefepime 1 GM in Sodium Chloride 0.9% 100 ML IVPB SCH ×2 (11:11→20:35)
[2021-04-01 06:04] LABS: #Eosinphils 0.1 thou/uL (0.0-0.7); #Lymphocytes 1.5 thou/uL (1.20-3.40); #Monocytes 1.1 thou/uL (0.11-0.59); #Neutrophils 13.4 thou/uL (1.40-6.50); %Eosinophils 0.3 % (0.0-10.0); %Lymphocytes 9.1 % (21.0-51.0); %Monocytes 6.9 % (0.0-10.0); %Neutrophils 83.6 % (42.0-75.0); Hemoglobin 12.9 g/dL (14.0-18.0); Mean Corpuscular HGB CONC 31.8 g/dL (32.0-36.0); Mean Corpuscular Hemoglobin 28.7 pg (27.0-31.0); Mean Corpuscular Volume 90.2 fL (78.0-98.0); Mean Platelet Volume 7.9 fL (7.4-10.4); Platelet Count 271 thou/uL (130-400); RBC Distribution Width 12.7 % (11.5-14.5); Red Blood Cell (RBC) Count 4.52 mill/uL (4.70-6.10)
[2021-04-01 06:33] LABS: ALT (SGPT) 172 U/L (8-55); AST (SGOT) 28 U/L (5-34); Alkaline Phosphatase 62 U/L (40-110); Anion Gap 10 mmol/L (10-20); BUN (Urea Nitrogen) 26 mg/dL (8.4-25.7); Bilirubin, Total 0.6 mg/dL (0.2-1.2); CRP (Inflammatory) 5.99 mg/dL (= or < 0.5); Calc. Creatinine Clearance 146 mL/min (70-130); Calcium 8.5 mg/dL (7.8-10.44); Carbon Dioxide 27 mmol/L (22-29); Chloride 101 mmol/L (98-107); Globulin 3.2 g/dL (2.4-3.5); Glucose 106 mg/dL (70-105); Potassium 4.3 mmol/L (3.5-5.1); Protein, Total 6.2 g/dL (6.0-8.3); Sodium 134 mmol/L (136-145)
[2021-04-01] MEDS: Tamsulosin HCl 0.4 MG CAP PO SCH (10:51)
[2021-04-01] MEDS: predniSONE 20 MG TAB PO SCH (10:51)
[2021-04-01] MEDS: Apixaban 5 MG TAB PO SCH ×2 (10:51→21:07)
[2021-04-01] MEDS: Cholecalciferol 1,000 UNITS (25 MCG) TAB PO SCH (10:51)
[2021-04-01] MEDS: Ascorbic Acid 500 mg Chewable Tablet PO SCH (10:55)
[2021-04-01] MEDS: Amlodipine 5 MG TAB PO SCH (10:55)
[2021-04-01] MEDS: Metoprolol Tartrate 25 MG TAB PO SCH ×2 (10:55→21:08)
[2021-04-01] MEDS: Zinc Sulfate 220 MG CAP PO SCH (10:56)
[2021-04-01] MEDS: Pantoprazole 40 MG GRANULES PACKET PO SCH (10:57)
[2021-04-01] MEDS: Polyethylene Glycol 3350 17 GM Packet PO SCH (10:57)
[2021-04-01] MEDS: Senokot 8.6 MG TAB PO SCH ×2 (10:57→21:08)
[2021-04-01] MEDS: Cefepime 1 GM in Sodium Chloride 0.9% 100 ML IVPB SCH ×2 (10:59→23:00)
[2021-04-02] MEDS: Tamsulosin HCl 0.4 MG CAP PO SCH (08:26)
[2021-04-02] MEDS: predniSONE 20 MG TAB PO SCH (08:26)
[2021-04-02] MEDS: Cholecalciferol 1,000 UNITS (25 MCG) TAB PO SCH (08:27)
[2021-04-02] MEDS: Metoprolol Tartrate 25 MG TAB PO SCH (08:28)
[2021-04-02] MEDS: Ascorbic Acid 500 mg Chewable Tablet PO SCH (08:28)
[2021-04-02] MEDS: Amlodipine 5 MG TAB PO SCH (08:28)
[2021-04-02] MEDS: Senokot 8.6 MG TAB PO SCH (08:28)
[2021-04-02] MEDS: Zinc Sulfate 220 MG CAP PO SCH (08:29)
[2021-04-02] MEDS: Pantoprazole 40 MG GRANULES PACKET PO SCH (08:29)
[2021-04-02] MEDS: Apixaban 5 MG TAB PO SCH (08:29)
[2021-04-02] MEDS: Polyethylene Glycol 3350 17 GM Packet PO SCH (08:30)
[2021-04-02] MEDS: HumaLOG 300 UNITS/3 ML VIAL SC PRN (12:14)
[2021-04-02 12:33] VITALS: BP 124/90; TEMP 97.7
== END 2021-04-02 17:20 | DRG 207 ==
LOC: ERS 14:50 → SUATTDRO 14:50 → T4-B 17:17 → CCU 03-13 20:21 → IMCU/EMU 03-24 11:31 → 2SW 03-26 18:06
PROVIDERS: ADMIT Family Medicine; ATTEND Internal Medicine
PROC: 8E0ZXY6 Isolation (ICD-10-PCS; 2021-03-12)
PROC: 5A1955Z Respiratory Ventilation, Greater than 96 Consecutive Hours (ICD-10-PCS; principal; 2021-03-13)
PROC: XW0DXM6 Introduction of Baricitinib into Mouth and Pharynx, External Approach, New Technology Group 6 (ICD-10-PCS; 2021-03-13)
PROC: 3E0333Z Introduction of Anti-inflammatory into Peripheral Vein, Percutaneous Approach (ICD-10-PCS; 2021-03-13)
PROC: 0BH17EZ Insertion of Endotracheal Airway into Trachea, Via Natural or Artificial Opening (ICD-10-PCS; 2021-03-13)
PROC: 0D9670Z Drainage of Stomach with Drainage Device, Via Natural or Artificial Opening (ICD-10-PCS; 2021-03-13)
PROC: 5A09357 Assistance with Respiratory Ventilation, Less than 24 Consecutive Hours, Continuous Positive Airway Pressure (ICD-10-PCS; 2021-03-13)
DX: U07.1 COVID-19 (principal); J12.82 Pneumonia due to coronavirus disease 2019; J80 Acute respiratory distress syndrome; E87.1 Hypo-osmolality and hyponatremia; N30.00 Acute cystitis without hematuria; G93.49 Other encephalopathy; E11.9 Type 2 diabetes mellitus without complications; R74.01 Elevation of levels of liver transaminase levels; M1A.9XX0 Chronic gout, unspecified, without tophus (tophi); R19.7 Diarrhea, unspecified; Z79.84 Long term (current) use of oral hypoglycemic drugs; Z79.899 Other long term (current) drug therapy; Z98.890 Other specified postprocedural states; Z78.1 Physical restraint status; E87.5 Hyperkalemia; D47.3 Essential (hemorrhagic) thrombocythemia; F41.9 Anxiety disorder, unspecified; R33.9 Retention of urine, unspecified; D72.829 Elevated white blood cell count, unspecified; T38.0X5A Adverse effect of glucocorticoids and synthetic analogues, initial encounter; B96.5 Pseudomonas (aeruginosa) (mallei) (pseudomallei) as the cause of diseases classified elsewhere
CPT/HCPCS: 36415; 36416; 36600; 71045; 74230; 80048; 80053; 80202; 81001; 82728; 82805; 83735; 83935; 84100; 84300; 84484; 85007; 85025; 85027; 85379; 86140; 87040; 87070; 87077; 87086; 87186; 87205; 93005; 94002; 94003; 94660; 96374; J0692; J1100; J1650; J1815; J2060; J2543; J2704; J2930; J3010; J3370; J3490; J7050; J7512; Q0162

== ENCOUNTER 2021-05-08 13:21 | Outpatient (CLI) | payer BC | END 2021-05-08 13:22 | disposition home or self-care (01) | LOC: SCSRAD 13:21 | PROVIDERS: ATTEND Family Medicine | DX: U09.9 Post COVID-19 condition, unspecified (principal); R91.8 Other nonspecific abnormal finding of lung field | CPT/HCPCS: 71046 ==

== ENCOUNTER 2021-05-14 09:12 | Outpatient (CLI) | payer BC ==
[2021-05-14 10:52] LABS: #Eosinphils 0.1 thou/uL (0.0-0.7); #Lymphocytes 3.7 thou/uL (1.20-3.40); #Monocytes 0.8 thou/uL (0.11-0.59); #Neutrophils 4.7 thou/uL (1.40-6.50); %Basophils 0.1 % (0.0-1.0); %Eosinophils 1.1 % (0.0-10.0); %Lymphocytes 39.7 % (21.0-51.0); %Monocytes 8.7 % (0.0-10.0); %Neutrophils 50.5 % (42.0-75.0); Hemoglobin 13.1 g/dL (14.0-18.0); Mean Corpuscular HGB CONC 32.8 g/dL (32.0-36.0); Mean Corpuscular Hemoglobin 29.4 pg (27.0-31.0); Mean Corpuscular Volume 89.6 fL (78.0-98.0); Mean Platelet Volume 6.9 fL (7.4-10.4); Platelet Count 372 thou/uL (130-400); RBC Distribution Width 14.4 % (11.5-14.5); Red Blood Cell (RBC) Count 4.45 mill/uL (4.70-6.10); White Blood Cell (WBC) Count 9.4 thou/uL (4.8-10.8)
[2021-05-14 11:14] LABS: ALT (SGPT) 20 U/L (8-55); AST (SGOT) 15 U/L (5-34); Albumin 3.7 g/dL (3.5-5.0); Alkaline Phosphatase 80 U/L (40-110); Anion Gap 10 mmol/L (10-20); BUN (Urea Nitrogen) 14 mg/dL (8.4-25.7); Bilirubin, Total 0.5 mg/dL (0.2-1.2); Calc. Creatinine Clearance 0 mL/min (70-130); Calcium 9.4 mg/dL (7.8-10.44); Carbon Dioxide 29 mmol/L (22-29); Chloride 102 mmol/L (98-107); Globulin 3.3 g/dL (2.4-3.5); Glucose 134 mg/dL (70-105); Iron 72 ug/dL (65-175); Iron Binding Capacity, Total 278 mcg/dL (261-462); Potassium 4.2 mmol/L (3.5-5.1); Sodium 137 mmol/L (136-145)
== END 2021-05-14 09:13 | disposition home or self-care (01) ==
LOC: SCSRAD 09:12
PROVIDERS: ATTEND Family Medicine
DX: U09.9 Post COVID-19 condition, unspecified (principal); D50.9 Iron deficiency anemia, unspecified; J84.9 Interstitial pulmonary disease, unspecified
CPT/HCPCS: 36415; 71046; 80053; 83540; 83550; 85025

== ENCOUNTER 2021-06-10 13:43 | Outpatient (CLI) | payer BC | END 2021-06-10 13:44 | disposition home or self-care (01) | LOC: BICULT 13:43 | PROVIDERS: ATTEND Family Medicine | DX: N50.89 Other specified disorders of the male genital organs (principal) | CPT/HCPCS: 76870; 93976 ==

== ENCOUNTER 2022-08-15 07:37 | Emergency (ER) | payer BC ==
[2022-08-15] MEDS ORDERED: Proparacaine 0.5% Opth 15 ML BOT ONE (08:04)
[2022-08-15] MEDS ORDERED: Fluorescein Opthalmic Strip ONE (08:04)
== END 2022-08-15 09:05 | disposition home or self-care (01) ==
LOC: ERS 07:37
DX: B02.9 Zoster without complications (principal); E11.9 Type 2 diabetes mellitus without complications; I10 Essential (primary) hypertension
CPT/HCPCS: 99282

== ENCOUNTER 2024-01-19 17:25 | Emergency (ER) | payer BC ==
[2024-01-19 18:40] LABS: #Basophils Less than 0.03 10x3/uL (0.0-0.2); #Eosinphils Less than 0.03 10x3/uL (0.0-0.7); %Basophils 0.2 % (0.0-1.0); %Eosinophils 0.2 % (0.0-10.0); %Lymphocytes 12.8 % (21.0-51.0); %Monocytes 9.3 % (0.0-10.0); %Neutrophils 77.1 % (42.0-75.0); Hematocrit 43.5 % (42.0-52.0); Hemoglobin 14.9 g/dL (14.0-18.0); Mean Corpuscular HGB CONC 34.3 g/dL (32.0-36.0); Mean Corpuscular Volume 84.6 fL (78.0-98.0); Mean Platelet Volume 9.5 fL (7.4-10.4); Platelet Count 263 10x3/uL (130-400); Red Blood Cell (RBC) Count 5.14 mill/uL (4.70-6.10)
[2024-01-19 19:00] LABS: ALT (SGPT) 39 U/L (8-55); AST (SGOT) 29 U/L (5-34); Albumin 3.8 g/dL (3.5-5.0); Alkaline Phosphatase 63 U/L (40-110); Anion Gap 15 mmol/L (10-20); BUN (Urea Nitrogen) 15 mg/dL (8.4-25.7); Bilirubin, Total 0.5 mg/dL (0.2-1.2); Calc. Creatinine Clearance 0 mL/min (70-130); Calcium 9.1 mg/dL (7.8-10.44); Carbon Dioxide 23 mmol/L (22-29); Chloride 101 mmol/L (98-107); Estimated GFR 57; Globulin 4.2 g/dL (2.4-3.5); Glucose 141 mg/dL (70-105); Potassium 3.9 mmol/L (3.5-5.1); Sodium 135 mmol/L (136-145)
[2024-01-19 20:51] LABS: Influenza A by NAA Not Detected (NotDetected); Influenza B by NAA Not Detected (NotDetected); SARS-CoV-2 NAA Rapid Test DETECTED (NotDetected)
== END 2024-01-19 20:23 | disposition home or self-care (01) ==
LOC: ERS 17:25
DX: U07.1 COVID-19 (principal); E11.9 Type 2 diabetes mellitus without complications; I10 Essential (primary) hypertension
CPT/HCPCS: 36415; 71045; 80053; 83605; 85025; 85379